=== PATIENT | female | born 1995 | race Asian ===

== ENCOUNTER 2018-05-09 13:38 | Emergency (ER) | payer OTHER, BC ==
[2018-05-09 13:53] VITALS: BP 129/55; PULSE 87; TEMP 98; BMI 21.0
[2018-05-09] MEDS ORDERED: TETANUS AND DIPHTHERIA TOXOID 0.5 ML DISP.SYRIN IM ONE (14:29)
--- NOTE | 2018-05-09 14:34 | PDOC ---
History of Present Illness - General Chief Complaint: Laceration Stated Complaint: PINKY LACERATION Time Seen by Provider: 05/09/18 13:50 History Source: Patient Exam Limitations: Clinical Condition - History of Present Illness Initial Comments: 05/09/18 14:29 Patient with no sig PMhx present with complains of laceration to tip left of little finger whiles at work today by metal door almost cutting off the tip of finger an hours ago with bleeding Timing/Duration: 1 hour Severity: moderate Modifying Factors: improves with: other (none) Associated Symptoms: reports: denies symptoms. denies: weakness Aspirin Received prior to arrival: Yes: no aspirin today Past History - Past Medical History Allergies/Adverse Reactions: Allergies Allergy/AdvReac Type Severity Reaction Status Date / Time No Known Allergies Allergy Verified 05/09/18 13:45 Home Medications: Ambulatory Orders Cephalexin [Keflex] 500 mg PO BID 7 Days #14 capsule 05/09/18 Ibuprofen 800 mg PO TID PRN #20 tablet 05/09/18 COPD: No - Immunization History Immunization Up to Date: No - Suicide/Smoking/Psychosocial Hx Smoking History: Never smoked Have you smoked in the past 12 months: No Information on smoking cessation initiated: No Hx Alcohol Use: No Drug/Substance Use Hx: No Substance Use Type: None Review of Systems - Review of Systems Able to Perform ROS?: Yes Is the patient limited Upper Sorbian proficient: No Constitutional: No: Chills, Diaphoresis, Fever, Loss of Appetite, Malaise, Night Sweats, Weakness, Weight Stable, Unintentional Wgt. Loss, Unexplained wgt Loss, Other HEENTM: No: Eye Pain, Blurred Vision, Tearing, Recent change in vision, Double Vision, Cataracts, Ear Pain, Ocular Prothesis, Ear Discharge, Nose Pain, Nose Congestion, Tinnitus, Nose Bleeding, Hearing Loss, Throat Pain, Throat Swelling , Mouth Pain, Dental Problems, Difficulty Swallowing, Mouth Swelling, Other Respiratory: No: Cough, Orthopnea, Shortness of Breath, SOB with Exertion, SOB at Rest, Stridor, Wheezing, Productive cough, Hemoptysis, Other Cardiac (ROS): No: Chest Pain, Edema, Irregular Heart Rate, Lightheadedness, Palpitations, Syncope, Chest Tightness, Other ABD/GI: No: Abdominal Distended, Abd. Pain w/ defecation, Blood Streaked Bowels , Constipated, Diarrhea, Difficulty Swallowing, Nausea, Poor Appetite, Poor Fluid Intake, Rectal Bleeding, Vomiting, Indigestion, Abdominal cramping, Tarry Stools, Other Musculoskeletal: Yes: Muscle Pain (tip of left little finger and nail bed) Integumentary: Yes: See HPI, Other (bleeding with laceration to distal phalange of left little finger at nail bed) Neurological: No: Headache, Numbness, Paresthesia, Pre-Existing Deficit, Seizure , Tingling, Tremors, Weakness, Unsteady Gait, Ataxia, Dizziness, Other Psychiatric: No: Anxiety, Depression, Frequent Crying, Stressors, Sleep Pattern Change, Emotional Problems, Mood Swings, Change in Appetite, Other Hematologic/Lymphatic: No: Easy Bleeding, Easy Bruising All Other Systems: Reviewed and Negative *Physical Exam - Vital Signs Last Vital Signs Temp Pulse Resp BP Pulse Ox 98 F 87 16 129/55 100 05/09/18 13:46 05/09/18 13:46 05/09/18 13:46 05/09/18 13:46 05/09/18 13:46 - Physical Exam General Appearance: Yes: Nourished, Appropriately Dressed, Moderate Distress HEENT: positive: PRIYANK, Normal ENT Inspection, TMs Normal, Pharynx Normal Neck: positive: Trachea midline, Normal Thyroid, Supple Respiratory/Chest: positive: Lungs Clear, Normal Breath Sounds. negative: Respiratory Distress, Accessory Muscle Use Cardiovascular: positive: Regular Rhythm, Regular Rate, S1, S2 Gastrointestinal/Abdominal: positive: Normal Bowel Sounds Musculoskeletal: positive: Other (almost complete avulsion to distal half of distal phalange of left little finger around nail bed with moderate bleeding ) Extremity: positive: Other (avulsion laceration to nail bed of distal phanalge of left little finger with moderate bleeding) Neurologic: positive: Fully Oriented, Normal Response Procedures - Incision and Drainage Volume(ml): 3 - Laceration/Wound Repair Left Distal Finger 5th digit Wound Explored: clean, no foreign body present Wound's Depth, Shape: flap, nail-avulsed Irrigated w/ Saline: Yes Betadine Prep: Yes Anesthesia: 1% Lidocaine Amount of Anesthetic (ccs): 3 Wound Debrided: minimal (saline water) Wound Repaired With: Sutures (5 interrupted sutures to close avulasion laceration ) Suture Size/Type: 4:0, nylon Number of Sutures: 5 Layer Closure: No Sterile Dressing Applied: Yes Splint Applied: No Sling Applied: No Progress: 05/09/18 14:39 3cm avulsion laceration to nail bed of left little finger wound cleaned with betadine and hydrogen peroxide. wound washed with normal saline. wound ilfitrated with 3cc 1% lidocaine. wound closed with 5 interrupted sutures with 4 'O Nylon after good anesthesia obtained. bacitracin applied to wound and adhesive bandage applied to wound. Tetanus vaccine 0.5cc given. Patient tolerated procedure well Medical Decision Making - Medical Decision Making 05/09/18 14:42 Patient with avulsion laceration to nail bed of left little finger. wound closed with 5 interrupted sutures after good anesthesia. Tetanus vaccine given. d/c home on Bactrim Abx. f/u in 5-7 days for wound check and suture removal *DC/Admit/Observation/Transfer Diagnosis at time of Disposition: Laceration of finger nail bed Qualifiers: Encounter type: initial encounter Qualified Code(s): S61.319A - Laceration without foreign body of unspecified finger with damage to nail, initial encounter Laceration of left little finger Qualifiers: Encounter type: initial encounter Damage to nail status: with damage Foreign body presence: without foreign body Qualified Code(s): S61.317A - Laceration without foreign body of left little finger with damage to nail, initial encounter - Discharge Dispostion Disposition: HOME Condition at time of disposition: Good Decision to Admit order: No - Prescriptions Prescriptions: Cephalexin [Keflex] 500 mg PO BID 7 Days #14 capsule Ibuprofen 800 mg PO TID PRN #20 tablet PRN Reason: Pain - Referrals Referrals: Lucía Singh [Primary Care Provider] - - Patient Instructions Additional Instructions: Take medicatiion as prescribed. apply bacitracin to wound two times/ day. Follow -up in 5-7 days for suture removal - Post Discharge Activity
[2018-05-09] MEDS ORDERED: IBUPROFEN 400 MG TABLET (FP) PO ONE ×3 (14:47→14:48)
== END 2018-05-09 14:58 | disposition home or self-care (01) ==
LOC: JERFT 13:38
PROC: 3E0234Z Introduction of Serum, Toxoid and Vaccine into Muscle, Percutaneous Approach (ICD-10-PCS; principal; 2018-05-09)
PROC: 0HQGXZZ Repair Left Hand Skin, External Approach (ICD-10-PCS; 2018-05-09)
DX: S61.317A Laceration without foreign body of left little finger with damage to nail, initial encounter (principal); W23.0XXA Caught, crushed, jammed, or pinched between moving objects, initial encounter; Y93.89 Activity, other specified; Y92.511 Restaurant or cafe as the place of occurrence of the external cause; Y99.0 Civilian activity done for income or pay
CPT/HCPCS: 99281-25